=== PATIENT | male | born 1985 | race African-American/Black ===

== ENCOUNTER 2018-11-07 15:45 | Emergency (ER) | payer OTHER ==
[2018-11-07 15:51] VITALS: BP 159/87; PULSE 105; TEMP 97.8; BMI 27.3
--- NOTE | 2018-11-07 16:01 | PDOC ---
Rapid Medical Evaluation Chief Complaint: Eye Problem Time Seen by Provider: 11/07/18 15:47 Medical Evaluation: Allergies Allergy/AdvReac Type Severity Reaction Status Date / Time No Known Allergies Allergy Verified 11/07/18 15:48 Vital Signs Temp Pulse Resp BP Pulse Ox 97.8 F 105 H 18 159/87 100 11/07/18 15:49 11/07/18 15:49 11/07/18 15:49 11/07/18 15:49 11/07/18 15:49 11/07/18 15:59 I have performed a brief in-person evaluation of this patient. The patient presents with a chief complaint of: L eye blurry vision, H/o DM, ran out to metformin Pertinent physical exam findings:Stable and in NAD I have ordered the following:nothing The patient will proceed to the ED for further evaluation Discharge Disposition - Diagnosis Blurry vision, left eye - Referrals - Patient Instructions - Post Discharge Activity
[2018-11-07] MEDS ORDERED: metFORMIN HCL 500 MG TABLET (FP) PO ONE (16:56)
--- NOTE | 2018-11-07 16:58 | PDOC ---
History of Present Illness - General Chief Complaint: Eye Problem Stated Complaint: RX REFILL / LT EYE BLURRY Time Seen by Provider: 11/07/18 15:47 - History of Present Illness Initial Comments: 11/07/18 16:54 32-year-old male with a past medical history for type 2 diabetes presents for evaluation of inability to obtain an erection left eye cloudiness and medication refill. He takes metformin 500 mg twice a day but has not taken it in the last month Past History - Past Medical History Allergies/Adverse Reactions: Allergies Allergy/AdvReac Type Severity Reaction Status Date / Time No Known Allergies Allergy Verified 11/07/18 15:48 Home Medications: Ambulatory Orders Metformin HCl [Glucophage] 500 mg PO BID #20 tablet 11/07/18 COPD: No Other medical history: DENIES - Immunization History Immunization Up to Date: Yes - Suicide/Smoking/Psychosocial Hx Smoking History: Never smoked Hx Alcohol Use: No Drug/Substance Use Hx: No Review of Systems - Review of Systems Constitutional: No: Fever HEENTM: Yes: See HPI, Blurred Vision, Recent change in vision. No: Eye Pain, Tearing, Double Vision : Yes: See HPI *Physical Exam - Vital Signs Last Vital Signs Temp Pulse Resp BP Pulse Ox 97.8 F 105 H 18 159/87 100 11/07/18 15:49 11/07/18 15:49 11/07/18 15:49 11/07/18 15:49 11/07/18 15:49 - Physical Exam Comments: 11/07/18 16:55 HEAD: NC/AT EYES: Conjuntiva clear Ears: Canals and TM's normal NOSE: No d/c THROAT: Moist mucous membrances, oral pharanx clear, uvula midline NECK: Supple without adenopathy CARDIAC: S1 S2 LUNGS: CTA Full and Equal breath sounds ABDOMEN: Soft NT ND MS: Full ROM in all joints without edema NEUROLOGIC: No gross sensory or motor deficits, NVID SKIN: Normal color and temperature no lesions or rashes ED Treatment Course - ADDITIONAL ORDERS Additional order review: Laboratory Results 11/07/18 16:48 POC Glucometer 279 11/07/18 16:48 POC Glucometer 279 Medical Decision Making - Medical Decision Making 11/07/18 16:56 Fingerstick was 279 in the ER a dose of metformin was given endocrinology urology and PCP follow-up given to patient as well as ophthalmology *DC/Admit/Observation/Transfer Diagnosis at time of Disposition: Blurry vision, left eye, Hyperglycemia due to type 2 diabetes mellitus - Discharge Dispostion Disposition: HOME Condition at time of disposition: Stable Decision to Admit order: No - Prescriptions Prescriptions: Metformin HCl [Glucophage] 500 mg PO BID #20 tablet - Referrals Referrals: Ryan Cruz MD [Staff Physician] - Brooklynn Fowler MD [Non Staff, Medical] - Tania Luna MD [Staff Physician] - Gerardo Singh MD [Staff Physician] - - Patient Instructions Printed Discharge Instructions: DI for Hyperglycemia -- Adult Additional Instructions: Return to the emergency room for worsening symptoms please follow-up with ophthalmology, endocrinology, urology, internal medicine for further evaluation and treatment options. Follow-up should be done within the next 1-2 days. You have a ten-day supply of metformin at the pharmacy - Post Discharge Activity
[2018-11-07] MEDS ORDERED: metFORMIN HCL 500 MG TABLET (FP) ONE (17:08)
== END 2018-11-07 17:19 | disposition home or self-care (01) ==
LOC: JERFT 15:45
DX: H53.8 Other visual disturbances (principal); E11.65 Type 2 diabetes mellitus with hyperglycemia; Z79.84 Long term (current) use of oral hypoglycemic drugs
CPT/HCPCS: 82962; 99281-25